=== PATIENT | female | born 1940 | race Caucasian/White ===

== ENCOUNTER 2016-10-12 16:04 | Inpatient (IN) | payer MEDICARE, BC ==
[~2016-10-12] VITALS: Ht 167.6 cm; Wt 125.0 kg
[~2016-10-12 16:04] MED LIST: ASPI325T6 PO; ASPIRIN 81M81 MG/TA2 PO; BENICAR40 MG PO; CLARITIN 1010 MG/TAB PO; DULCOLAX S10 MG/SUPP RC; FERROUSAL325 MG PO; FOLIC ACID 40400 MCG PO; FOLIC ACID0.4 MG PO; KLOR-CON 1010 MEQ PO; LEXAPRO 10MG10 MG PO; MILK OF MA400 MG/52; MIRALAX PA17 GM/Dose PO; NORCO 325 MG-7.1 TAB PO; SENOKOT8.6 MG PO; TAMBOCOR50 MG PO; TYLENOL 500MG500 MG PO; ULTRAM 50MG TAB50 MG PO; VITAMINC1000TA PO; VOLTAREN 75 DR75 MG PO; VOLTAREN-XR100 MG PO; ZANTAC 150MG T150 MG PO
[2016-12-21] VITALS (10 sets, daily range): BP systolic 95–128; BP diastolic 50–81; PULSE 53–92; TEMP 98–98.3
[2016-12-22] VITALS (7 sets, daily range): BP systolic 76–110; BP diastolic 36–63; PULSE 68–80; TEMP 97.6–98.6
[2016-12-22 06:15] LABS: HEMATOCRIT 34.2 % (37.0-47.0); HEMOGLOBIN 11.7 g/dl (12.5-16.0)
[2016-12-23] VITALS (7 sets, daily range): BP systolic 77–110; BP diastolic 39–58; PULSE 74–81; TEMP 97.8–98.7
[2016-12-23 08:46] LABS: HEMOGLOBIN 12.1 g/dl (12.5-16.0)
[2016-12-23 12:46] LABS: CALCIUM 8.5 mg/dL (8.4-10.2); CREATININE, serum 1.06 mg/dL (0.52-1.25); POTASSIUM 4.3 mmol/L (3.4-5.0)
[2016-12-24 00:24] VITALS: BP 100/54; PULSE 80; TEMP 98.6
[2016-12-24 05:09] VITALS: BP 113/51; PULSE 81; TEMP 98.4
[2016-12-24 08:41] VITALS: BP 82/46; PULSE 84; TEMP 97.9
[2016-12-24 11:30] VITALS: BP 91/55
== END 2016-12-24 19:14 | disposition home or self-care (01) | DRG 470 ==
LOC: JCC 12-21 05:23
PROVIDERS: Orthopaedic Surgery
PROC: 0SRB0JA Replacement of Left Hip Joint with Synthetic Substitute, Uncemented, Open Approach (ICD-10-PCS; principal; 2016-12-21 07:30)
DX: M16.12 Unilateral primary osteoarthritis, left hip (principal); Z68.41 Body mass index [BMI] 40.0-44.9, adult; E66.01 Morbid (severe) obesity due to excess calories; I10 Essential (primary) hypertension
CPT/HCPCS: A4315; A9284; C1713; C1776; J1100; J2250; J2405; J2704; J3010; J7120

== ENCOUNTER → 2017-09-07 | Outpatient (CLI) | payer MEDICARE, BC | LOC: COL.RAD 09:00 | DX: M25.512 Pain in left shoulder (principal) | CPT/HCPCS: J3301 ==

== ENCOUNTER → 2019-01-23 | Outpatient (CLI) | payer MEDICARE, BC | LOC: COL.LAB 11:40 | DX: M25.561 Pain in right knee (principal) ==